=== PATIENT | female | born 2000 | race Caucasian/White ===

== ENCOUNTER → 2018-01-31 09:28 | Outpatient (CLI) | payer OTHER, SELFPAY ==
[2018-01-31 12:15] LABS: Chlamydia Trachomatis by PCR Negative (Negative); Neisserai gonorrhoeae by PCR Negative (Negative); Probe Check PASS; Sample Adequacy Control PASS; Specimen Processing Control PASS
== END ==
PROVIDERS: Visit Provider Obstetrics & Gynecology
DX: Z11.3 Encounter for screening for infections with a predominantly sexual mode of transmission (principal)
CPT/HCPCS: 87491; 87591

== ENCOUNTER 2021-08-16 10:44 | Outpatient (CLI) | payer OTHER, SELFPAY ==
[2021-08-23 14:58] LABS: HPV Reflexed? NOT INDICATED
== END 2021-08-16 23:59 | disposition home or self-care (01) ==
LOC: LABSPEC 10:47
PROVIDERS: Visit Provider Obstetrics & Gynecology
DX: Z12.4 Encounter for screening for malignant neoplasm of cervix (principal)
CPT/HCPCS: 88175; G0145